=== PATIENT | female | born 1980 | race African-American/Black ===

== ENCOUNTER 2022-03-25 12:28 | Emergency (ER) | payer MEDICAID ==
[~2022-03-25] VITALS: Ht 175.3 cm; Wt 115.0 kg
[2022-03-25 14:36] VITALS: BP 126/87
== END 2022-03-25 16:40 | disposition home or self-care (01) ==
LOC: ER 12:28
DX: T58.91XA Toxic effect of carbon monoxide from unspecified source, accidental (unintentional), initial encounter (principal); R51.9 Headache, unspecified; R11.0 Nausea; R19.7 Diarrhea, unspecified; R94.31 Abnormal electrocardiogram [ECG] [EKG]; Y93.89 Activity, other specified; Y92.018 Other place in single-family (private) house as the place of occurrence of the external cause
CPT/HCPCS: 93005; 99281

== ENCOUNTER 2022-08-05 08:19 | Emergency (ER) | payer OTHER ==
[~2022-08-05] VITALS: Ht 175.3 cm; Wt 117.9 kg
[2022-08-05 08:22] VITALS: PULSE 92
[2022-08-05 08:26] VITALS: BP 146/89; RESP 16; TEMP 98.5; O2SAT 99
[2022-08-05] MEDS ORDERED: METH-653 MT (08:39)
[2022-08-05] MEDS ORDERED: KETOROLAC 30MG/ML VIAL IM ONE (08:45)
[2022-08-05] MEDS ORDERED: METHOCARBAMOL 500MG TABLET PO ONE (08:45)
== END 2022-08-05 10:02 | disposition home or self-care (01) ==
LOC: ER 08:19
DX: M54.42 Lumbago with sciatica, left side (principal); Z98.890 Other specified postprocedural states
CPT/HCPCS: 96372; 99283; J1885; Z7610

== ENCOUNTER 2025-02-08 02:59 | Emergency (ER) | payer MEDICAID, OTHER ==
[~2025-02-08] VITALS: Ht 175.3 cm; Wt 113.4 kg
[~2025-02-08 02:59] MED LIST: METH-653 MT
[2025-02-08 03:01] VITALS: BP 180/100; TEMP 36.9; O2SAT 99
[2025-02-08 03:03] VITALS: PULSE 112; RESP 18; O2SAT 99
[2025-02-08] MEDS ORDERED: KETOROLAC 15MG/ML VIAL IM ONE (03:45)
[2025-02-08] MEDS: CETIRIZINE 10MG TABLET PO SCH (03:59)
[2025-02-08] MEDS: DEXAMETHASONE 10 MG/ML VIAL PO ONE (04:00)
[2025-02-08] MEDS: ACETAMINOPHEN 500MG TABLET PO ONE (04:00)
== END 2025-02-08 04:21 | disposition left against medical advice (07) ==
LOC: ER 02:59
DX: J34.89 Other specified disorders of nose and nasal sinuses (principal)
CPT/HCPCS: 81025; 99284; J1100; Z7610 ×2; J1885